=== PATIENT | female | born 1990 | race Caucasian/White ===

== ENCOUNTER 2016-09-28 17:48 | Emergency (ER) | payer MEDICAID ==
[~2016-09-28] VITALS: Ht 160 cm; Wt 50.0 kg
[2016-09-28 17:54] VITALS: BP 114/70
== END 2016-09-28 22:00 | disposition left against medical advice (07) ==
LOC: ER 18:13
DX: Z53.21 Procedure and treatment not carried out due to patient leaving prior to being seen by health care provider (principal)